=== PATIENT | female | born 1995 | race African-American/Black ===

== ENCOUNTER 2017-04-21 13:51 | Emergency (ER) | payer OTHER ==
[2017-04-21 13:52] VITALS: BP 123/85; PULSE 104; RESP 16; TEMP 98.7; O2SAT 99
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
[2017-04-21] MEDS ORDERED: ZOFR4TAB PO (14:32)
[2017-04-21] MEDS ORDERED: MAPA500T13 PO (14:32)
[2017-04-21] MEDS ORDERED: CYCL1TAB29 PO (14:32)
[2017-04-21] MEDS ORDERED: IBUP-232 PO (14:32)
== END 2017-04-21 15:05 | disposition home or self-care (01) ==
LOC: NEPK 13:51
DX: S06.0X0A Concussion without loss of consciousness, initial encounter (principal); S29.019A Strain of muscle and tendon of unspecified wall of thorax, initial encounter; R11.2 Nausea with vomiting, unspecified; V43.52XA Car driver injured in collision with other type car in traffic accident, initial encounter; Z88.0 Allergy status to penicillin
CPT/HCPCS: 99284